=== PATIENT | male | born 1980 | race Caucasian/White ===

== ENCOUNTER 2016-06-19 16:15 | Emergency (ER) | payer OTHER ==
[~2016-06-19] VITALS: Ht 170.2 cm; Wt 80.9 kg
[2016-06-19 16:49] LABS: BASOPHILS # (AUTO) 0.06 K/uL (0.00-0.20); BASOPHILS % (AUTO) 0.8 % (0.0-2.0); EOSINOPHILS % (AUTO) 2.62 % (1.0-6.0); HEMATOCRIT 48.2 % (41-53); HEMOGLOBIN 15.8 g/dL (13.5-17.5); LYMPHOCYTES % (AUTO) 38.6 % (22.0-44.0); MEAN CORPUSCULAR HEMOGLOBIN 29.6 pg (26.0-34.0); MEAN CORPUSCULAR HGB CONC 32.8 G/dL (31.0-37.0); MEAN CORPUSCULAR VOLUME 90 fL (80-100); MONOCYTES # (AUTO) 0.4 K/uL (0.1-1.0); MONOCYTES % (AUTO) 5.7 % (2.0-9.0); NEUTROPHILS # (AUTO) 4.1 K/uL (1.8-7.7); NEUTROPHILS % (AUTO) 52.4 % (40.0-70.0); PLATELET COUNT (AUTO) 297 K/uL (150-450); RED BLOOD CELL COUNT(AUTO) 5.34 MIL/uL (4.50-5.90); RED CELL DISTRIBUTION WIDTH 13.5 % (11.5-14.5); WHITE BLOOD COUNT (AUTO) 7.8 K/uL (4.5-11.0)
[2016-06-19 16:58] LABS: ANION GAP 10 mmol/L (8-16); CALCIUM, TOTAL 8.6 mg/dL (8.8-10.5); CARBON DIOXIDE 30 mmol/L (22-29); CHLORIDE 103 mmol/L (98-107); CREATININE 1.04 mg/dL (0.60-1.30); GLOMERULAR FILTR. RATE CALC > 60 mL/min (>60); SODIUM SERUM 143 mmol/L (136-145); UREA NITROGEN, BLOOD 5 mg/dL (7-18)
[2016-06-19 17:03] LABS: ALANINE AMINOTRANSFERASE 36 U/L (12-78); ALBUMIN 4.2 g/dL (3.4-5.0); ASPARTATE AMINOTRANSFERASE 18 U/L (15-37); BILIRUBIN,TOTAL 0.2 mg/dL (0.1-1.0); TOTAL PROTEIN, SERUM 8.3 g/dL (6.4-8.2)
[2016-06-19 19:12] VITALS: BP 158/101
== END 2016-06-19 19:14 | disposition home or self-care (01) ==
LOC: EMS 16:16
DX: R53.1 Weakness (principal); F10.129 Alcohol abuse with intoxication, unspecified; F15.10 Other stimulant abuse, uncomplicated; F14.10 Cocaine abuse, uncomplicated; R06.02 Shortness of breath; I10 Essential (primary) hypertension; Y90.7 Blood alcohol level of 200-239 mg/100 ml
CPT/HCPCS: 36415; 80053; 80307; 85025; 93005; 99285; G0480

== ENCOUNTER 2022-08-04 00:03 | Emergency (ER) | payer OTHER ==
[~2022-08-04] VITALS: Ht 170.2 cm; Wt 81.8 kg
[2022-08-04 00:06] VITALS: TEMP 98.2
[2022-08-04] MEDS ORDERED: HYDROCODONE/ACETAMINOPHEN 5-325 MG TABLET PO ONE (01:00)
[2022-08-04] MEDS ORDERED: KETOROLAC TROMETHAMINE 60 MG/2 ML VIAL IM ONE (01:00)
[2022-08-04] MEDS ORDERED: HYDR-4723 PO (03:08)
[2022-08-04] MEDS ORDERED: BACL10TA PO (03:08)
[2022-08-04] MEDS ORDERED: IBUP-1554 PO (03:08)
[2022-08-04 03:21] VITALS: BP 155/98; PULSE 80; RESP 17
[2022-08-04] MEDS ORDERED: HYDR-4072 PO (04:29)
== END 2022-08-04 03:24 | disposition home or self-care (01) ==
LOC: EMS 00:06
DX: S40.011A Contusion of right shoulder, initial encounter (principal); S29.012A Strain of muscle and tendon of back wall of thorax, initial encounter; S60.011A Contusion of right thumb without damage to nail, initial encounter; I10 Essential (primary) hypertension; W01.0XXA Fall on same level from slipping, tripping and stumbling without subsequent striking against object, initial encounter; Y93.89 Activity, other specified; Y92.89 Other specified places as the place of occurrence of the external cause; Y99.8 Other external cause status
CPT/HCPCS: 99284; 29105; 71045; 73030; 73130; 96372; J1885; 29240

== ENCOUNTER 2022-12-07 08:10 | Emergency (ER) | payer OTHER ==
[~2022-12-07] VITALS: Ht 170.2 cm; Wt 84.1 kg
[~2022-12-07 08:10] MED LIST: BACL10TA PO; HYDR-4072 PO; IBUP-1554 PO
[2022-12-07 08:16] VITALS: BP 117/82; PULSE 88; RESP 18; TEMP 98
[2022-12-07] MEDS ORDERED: ERYT3.5O8 OU (09:07)
== END 2022-12-07 09:22 | disposition home or self-care (01) ==
LOC: EMS 08:10
DX: B30.9 Viral conjunctivitis, unspecified (principal); I10 Essential (primary) hypertension
CPT/HCPCS: 99283; Z7502

== ENCOUNTER 2023-08-03 19:07 | Emergency (ER) | payer MEDICAID, OTHER ==
[~2023-08-03] VITALS: Ht 170.2 cm; Wt 83.6 kg
[~2023-08-03 19:07] MED LIST changes: -BACL10TA PO; +ERYT3.5O8 OU; -HYDR-4072 PO; -IBUP-1554 PO
[2023-08-03 19:13] VITALS: TEMP 98.3
[2023-08-03] MEDS ORDERED: LISI-893 PO (19:17)
[2023-08-03 19:41] LABS: BASOPHILS % (AUTO) 0.6 % (0.0-2.0); EOSINOPHILS % (AUTO) 9.1 % (1.0-6.0); HEMOGLOBIN 14.4 g/dL (13.5-17.5); LYMPHOCYTES # (AUTO) 2.1 K/uL (1.0-4.8); LYMPHOCYTES % (AUTO) 26.2 % (22.0-44.0); MEAN CORPUSCULAR HEMOGLOBIN 30.5 pg (26.0-34.0); MEAN CORPUSCULAR HGB CONC 33.5 G/dL (31.0-37.0); MEAN CORPUSCULAR VOLUME 91 fL (80-100); MONOCYTES # (AUTO) 0.7 K/uL (0.1-1.0); MONOCYTES % (AUTO) 8.7 % (2.0-9.0); NEUTROPHILS # (AUTO) 4.4 K/uL (1.8-7.7); NEUTROPHILS % (AUTO) 55.4 % (40.0-70.0); PLATELET COUNT (AUTO) 254 K/uL (150-450); RED BLOOD CELL COUNT(AUTO) 4.72 MIL/uL (4.50-5.90); RED CELL DISTRIBUTION WIDTH 13.7 % (11.5-14.5); WHITE BLOOD COUNT (AUTO) 7.9 K/uL (4.5-11.0)
[2023-08-03 19:55] LABS: ANION GAP 9 mmol/L (8-16); CALCIUM, TOTAL 8.8 mg/dL (8.8-10.5); CARBON DIOXIDE 29 mmol/L (22-29); CHLORIDE 105 mmol/L (98-107); CREATININE 0.93 mg/dL (0.60-1.30); GLOMERULAR FILTR. RATE CALC > 60 mL/min (>60); GLUCOSE,RANDOM 110 mg/dL (70-110); POTASSIUM 3.5 mmol/L (3.5-5.1); SODIUM SERUM 143 mmol/L (136-145); UREA NITROGEN, BLOOD 13 mg/dL (7-18)
[2023-08-03 20:02] LABS: TROPONIN I-HIGH SENSITIVITY 18 ng/L (<76)
[2023-08-03 20:11] LABS: B-TYPE NATRIURETIC PEPTIDE 6 pg/mL (0-100)
[2023-08-03 20:26] LABS: CREATINE KINASE, TOTAL ONLY 222 U/L (39-308)
[2023-08-03 21:23] LABS: APPEARANCE,URINE CLEAR (CLEAR); BILIRUBIN,URINE NEGATIVE (NEGATIVE); COLOR,URINE YELLOW (YELLOW); GLUCOSE, URINE (UA) NEGATIVE (NEGATIVE); KETONES,URINE TRACE mg/dL (NEGATIVE); LEUKOCYTE ESTERASE ,URINE NEGATIVE (NEGATIVE); NITRATE,URINE NEGATIVE (NEGATIVE); OCCULT BLOOD,URINE NEGATIVE (NEGATIVE); PH,URINE 6.5 (5.0-8.0); PROTEIN,URINE TRACE mg/dL (NEGATIVE)
[2023-08-03 22:43] VITALS: BP 130/89; PULSE 82; RESP 16
[2023-08-03] MEDS: ACETAMINOPHEN 500 MG TABLET PO ONE (23:04)
[2023-08-03] MEDS: GuaiFENesin/D-METHORPHAN [SUGAR-FREE] 200-20MG/10 ML SYRUP UDCUP PO ONE (23:05)
[2023-08-03] MEDS: IBUPROFEN 600 MG TABLET PO ONE (23:05)
[2023-08-03] MEDS ORDERED: ACET-66 PO (23:18)
[2023-08-03] MEDS ORDERED: LORA10TA7 PO (23:18)
[2023-08-03] MEDS ORDERED: PSEU-191 PO (23:18)
[2023-08-03] MEDS ORDERED: FLUT16SP NASAL (23:18)
[2023-08-03] MEDS ORDERED: OXYM15SP57 NASAL (23:18)
[2023-08-03] MEDS ORDERED: GUAIFDM PO (23:18)
== END 2023-08-03 23:44 | disposition home or self-care (01) ==
LOC: EMS 19:07
DX: T78.40XA Allergy, unspecified, initial encounter (principal); J02.8 Acute pharyngitis due to other specified organisms; I10 Essential (primary) hypertension; X58.XXXA Exposure to other specified factors, initial encounter
CPT/HCPCS: 71045; 80048; 81003; 82550; 84484; 85025; 85379; 87430; 93005; 99285; 36415-L1; 36415-TC

== ENCOUNTER → 2024-04-29 | Emergency (ER) | payer MEDICAID, OTHER ==
[~2024-04-29] VITALS: Ht 175.3 cm; Wt 82.7 kg
[~2024-04-29] MED LIST changes: +ACET-66 PO; -ERYT3.5O8 OU; +FLUT16SP NASAL; +GUAIFDM PO; +LISI-893 PO; +LORA10TA7 PO; +OXYM15SP63 NASAL; +PSEU-191 PO
[2024-04-29 20:28] VITALS: BP 149/99; PULSE 105; RESP 18; TEMP 98.7; O2SAT 98
== END | disposition still patient (30) ==
LOC: EMS 20:06
DX: R52 Pain, unspecified (principal); Z53.21 Procedure and treatment not carried out due to patient leaving prior to being seen by health care provider; V89.2XXA Person injured in unspecified motor-vehicle accident, traffic, initial encounter; Y93.89 Activity, other specified; Y92.89 Other specified places as the place of occurrence of the external cause; Y99.8 Other external cause status